=== PATIENT | male | born 1930 | race Caucasian/White ===

== ENCOUNTER 2017-08-09 21:55 | Inpatient (IN) ==
--- NOTE | 2017-08-09 22:11 | EKG Report ---
Test Performed on : 08/09/2017 10:02:36 PM Test Reason : AMS Blood Pressure : / mmHG Vent. Rate : 092 BPM Atrial Rate : 092 BPM P-R Int : 140 ms QRS Dur : 140 ms QT Int : 372 ms P-R-T Axes : 042 [id number] 027 degrees QTc Int : 460 ms Normal sinus rhythm. Right bundle branch block Abnormal ECG No previous ECGs available Unconfirmed Result
[2017-08-09 22:17] LABS: BE 1.3 mmoll (-3.0-3.0); BLOOD TYPE ARTERIAL; METHB 1.7 % (0.0-1.5); O2(CT) 20.2 mL/dL (15.0-23.0); PCO2(98.6) 30 mmHg (35-45); PO2(98.6) 62 mmHg (60-100); SAMPLE BLOOD; SAO2 95.9 % (95.0-100.0); THB 15.6 g/dL (11.5-17.4)
[2017-08-09 22:26] LABS: MANUAL DIFF NEEDED? NO
[2017-08-09 22:26] LABS: ALLEN TEST YES; DRAW SITE L RADIAL; MODALITY CANNULA
[2017-08-09 22:38] LABS: BASO% 0.1 % (0.0-0.8); EOS# 0.03 X1000 (0.0-0.7); EOS% 0.2 % (0.0-10.0); HEMATOCRIT 44.6 % (42.0-52.0); HEMOGLOBIN 14.8 g/dL (14.0-18.0); IMM GRAN# 0.02 X1000 (0.0-0.04); IMM GRAN% 0.1 % (0.0-0.5); LYMPH# 0.53 X1000 (1.2-3.4); LYMPH% 3.8 % (20.5-51.1); MCH 29.4 PG (27-31); MCHC 33.2 g/dL (33-37); MCV 88.7 FL (81-99); MONO% 10.1 % (1.7-9.3); MPV 10.4 FL (7.4-10.4); NEUT% 85.7 % (42.2-75.2); PLT 159 X1000 (130-400); RBC 5.03 XMIL (4.7-6.1)
[2017-08-09 22:46] LABS: INR 0.96 (0.86-1.15); PROTIME 13.5 Seconds (12.1-15.5)
[2017-08-09 22:47] LABS: PTT PL 35.1 Seconds (22.6-43.9)
[2017-08-09 22:52] LABS: BILIRUBIN URINE NEGATIVE (NEGATIVE); BLOOD URINE 1+ (NEGATIVE); CLARITY SL. CLOUDY (CLEAR); COLOR YELLOW; GLUCOSE URINE NEGATIVE (NEGATIVE); LEUKOCYTES URINE 2+ (NEGATIVE); NITRITE URINE POSITIVE (NEGATIVE); PH URINE 6.5; PROTEIN URINE TRACE mg/dL (NEGATIVE); SP GRAVITY URINE 1.015; UROBILINOGEN URINE NORMAL
[2017-08-09 23:01] LABS: UR AMPHETAMINES QUAL NONE DETECTED (NONE DETECT); UR BARBITUATES QUAL NONE DETECTED (NONE DETECT); UR BENZODIAZEPIN QUAL NONE DETECTED (NONE DETECT); UR CANNABINOIDS QUAL NONE DETECTED (NONE DETECT); UR COCAINE QUAL NONE DETECTED (NONE DETECT); UR MDMA QUAL NONE DETECTED (NONE DETECT); UR METHADONE QUAL NONE DETECTED (NONE DETECT); UR METHAMPHETAMINE QUAL NONE DETECTED (NONE DETECT); UR OPIATES QUAL NONE DETECTED (NONE DETECT); UR OXYCODONE QUAL NONE DETECTED (NONE DETECT); UR PCP QUAL NONE DETECTED (NONE DETECT); UR TCA QUAL NONE DETECTED (NONE DETECT)
[2017-08-09 23:10] LABS: AGAP 16; ALBUMIN 3.5 g/dL (3.5-5.0); ALKALINE PHOSPHATASE 75 U/L (32-122); BUN 23 mg/dL (8-22); CALCIUM 8.7 mg/dL (8.8-10.2); CHLORIDE 100 mmol/L (98-107); CK PROFILE 76 U/L (24-204); COSMO 277; GOT 20 U/L (10-34); GPT 26 U/L (10-44); POTASSIUM 3.6 mmol/L (3.5-5.1); SODIUM 136 mmol/L (136-145); TCO2 20 mmol/L (25-35); TOTAL PROTEIN 7.2 g/dL (6.3-8.3)
[2017-08-09 23:14] LABS: URINE CULTURE PL NEEDED? YES; URINE EPITHELIAL CELLS <10 /HPF (<10); URINE RBC <10 /HPF (<10); URINE SOURCE CLEAN CATCH
[2017-08-09] MEDS ORDERED: TYLENOL PO ONE (23:34)
[2017-08-09] MEDS ORDERED: ROCEPHIN 1 GM in NS 50 ML IV ONE (23:38)
[2017-08-09] MEDS ORDERED: NS 1,000 ML IV ONE (23:39)
[2017-08-09] MEDS ORDERED: TYLENOL PO PRN (23:40)
[2017-08-10] MEDS ORDERED: MORPHINE IV ONE (00:23)
[2017-08-10] MEDS ORDERED: NS 50 ML ONE (00:31)
[2017-08-10 01:18] LABS: BILIRUBIN URINE NEGATIVE (NEGATIVE); BLOOD URINE 2+ (NEGATIVE); CLARITY SL. CLOUDY (CLEAR); COLOR YELLOW; GLUCOSE URINE NEGATIVE (NEGATIVE); LEUKOCYTES URINE 1+ (NEGATIVE); NITRITE URINE POSITIVE (NEGATIVE); PROTEIN URINE TRACE mg/dL (NEGATIVE); SP GRAVITY URINE 1.015; UROBILINOGEN URINE NORMAL
[2017-08-10 01:22] LABS: URINE CULTURE PL NEEDED? YES; URINE EPITHELIAL CELLS <10 /HPF (<10); URINE RBC <10 /HPF (<10)
[2017-08-10 01:23] LABS: URINE SOURCE CATH
--- NOTE | 2017-08-10 07:44 | Diag Imaging Result Doc PS360 ---
EXAM: CHEST-PORTABLE INDICATION: AMS TECHNIQUE: One view COMPARISON: None. FINDINGS: The lungs are grossly clear. There is no discrete pleural fluid collection or pneumothorax. CABG changes are noted. The cardiac silhouette and central vasculature are grossly unremarkable, otherwise. IMPRESSION: No evidence of acute pathology by plain radiograph. Electronically signed by David Toney 08/10/2017 7:42 AM
[2017-08-10] MEDS: ARICEPT PO SCH (10:05)
[2017-08-10] MEDS: LEXAPRO PO SCH (10:05)
[2017-08-10] MEDS: FLOMAX PO SCH (10:05)
[2017-08-10] MEDS: LIPITOR PO SCH (10:06)
[2017-08-10] MEDS: ASPIRIN PO SCH (10:06)
[2017-08-10] MEDS: VIMPAT PO SCH ×2 (10:13→23:14)
[2017-08-10] MEDS: COZAAR PO SCH (10:13)
[2017-08-10] MEDS: PRILOSEC PO SCH (10:13)
[2017-08-10] MEDS: ROCEPHIN 1 GM in NS 50 ML IV SCH (23:14)
[2017-08-11 06:08] LABS: MANUAL DIFF NEEDED? NO
[2017-08-11 06:19] LABS: BASO% 0.1 % (0.0-0.8); EOS% 0.9 % (0.0-10.0); HEMOGLOBIN 12.9 g/dL (14.0-18.0); IMM GRAN# 0.02 X1000 (0.0-0.04); IMM GRAN% 0.2 % (0.0-0.5); LYMPH# 0.97 X1000 (1.2-3.4); LYMPH% 8.8 % (20.5-51.1); MCH 29.3 PG (27-31); MCHC 32.3 g/dL (33-37); MCV 90.7 FL (81-99); MONO# 1.15 X1000 (0.11-0.59); MONO% 10.4 % (1.7-9.3); MPV 10.7 FL (7.4-10.4); NEUT% 79.6 % (42.2-75.2); PLT 136 X1000 (130-400); RBC 4.41 XMIL (4.7-6.1)
[2017-08-11 06:40] LABS: AGAP 10; BUN 19 mg/dL (8-22); CALCIUM 8.3 mg/dL (8.8-10.2); CHLORIDE 103 mmol/L (98-107); COSMO 278; POTASSIUM 3.8 mmol/L (3.5-5.1); SODIUM 138 mmol/L (136-145); TCO2 24 mmol/L (25-35)
[2017-08-11] MEDS: PRILOSEC PO SCH (07:00)
[2017-08-11] MEDS: FLOMAX PO SCH (09:00)
[2017-08-11] MEDS: VIMPAT PO SCH ×2 (09:00→20:02)
[2017-08-11] MEDS: LEXAPRO PO SCH (09:00)
[2017-08-11] MEDS: LIPITOR PO SCH (09:00)
[2017-08-11] MEDS: COZAAR PO SCH (09:00)
[2017-08-11] MEDS: ARICEPT PO SCH (09:00)
[2017-08-11] MEDS: HYDROCHLOROTHIAZIDE PO SCH (09:00)
[2017-08-11] MEDS: ASPIRIN PO SCH (09:00)
[2017-08-11] MEDS: ROCEPHIN 1 GM in NS 50 ML IV SCH (22:12)
[2017-08-12] MEDS: PRILOSEC PO SCH (06:05)
[2017-08-12] MEDS: COZAAR PO SCH (09:14)
[2017-08-12] MEDS: VIMPAT PO SCH (09:14)
[2017-08-12] MEDS: LIPITOR PO SCH (09:14)
[2017-08-12] MEDS: LEXAPRO PO SCH (09:14)
[2017-08-12] MEDS: FLOMAX PO SCH (09:14)
[2017-08-12] MEDS: ASPIRIN PO SCH (09:14)
[2017-08-12] MEDS: HYDROCHLOROTHIAZIDE PO SCH (09:14)
[2017-08-12] MEDS: ARICEPT PO SCH (09:14)
[2017-08-12 17:00] VITALS: BP 117/62
[2017-08-12] MEDS ORDERED: KEFLEX PO SCH (21:00)
== END 2017-08-12 17:22 | disposition home health service (06) ==
LOC: P.ED 21:55 → MERGE 08-10 00:45 → P.MEDSURG 08-10 00:45 → SUATTDRO 08-10 00:45
PROVIDERS: ADMIT Family Medicine; ATTEND Internal Medicine